=== PATIENT | male | born 1950 | race Caucasian/White ===

== ENCOUNTER 2023-03-23 06:44 | Day surgery (SDC) | payer MEDICARE ==
[2023-03-23] MEDS ORDERED: fentaNYL 100 MCG/2 ML SDV ONE (07:25)
[2023-03-23] MEDS ORDERED: Propofol 200 MG/20 ML SDV ONE (07:25)
[2023-03-23] MEDS ORDERED: Lactated Ringers 1,000 ML IV SCH (07:30)
== END 2023-03-23 08:05 | disposition home or self-care (01) ==
LOC: JP.SDS 06:44
PROVIDERS: ATTEND Student in an Organized Health Care Education/Training Program
DX: I48.92 Unspecified atrial flutter (principal); Z53.8 Procedure and treatment not carried out for other reasons
CPT/HCPCS: 93005; J2704; J3010

== ENCOUNTER 2023-03-23 08:51 | Emergency (ER) | payer MEDICARE ==
[2023-03-23 10:01] LABS: BASOPHILS ABSOLUTE AUTO 0.03 K/uL (0.00-0.10); BASOPHILS PERCENT AUTO 0.5 % (0.1-1.3); EOSINOPHILS ABSOLUTE AUTO 0.04 K/uL (0.00-0.40); EOSINOPHILS PERCENT AUTO 0.7 % (0.0-5.4); HEMATOCRIT 44.3 % (38.4-49.7); HEMOGLOBIN 14.8 g/dL (12.9-16.9); IMMATURE GRAN PERCENT AUTO 0.2 % (0.0-0.7); LYMPHOCYTES ABSOLUTE AUTO 1.39 K/uL (0.8-3.3); LYMPHOCYTES PERCENT AUTO 24.1 % (11.4-47.7); MEAN CORPUSCULAR HEMOGLOBIN 30.5 pg (31.6-35.5); MEAN CORPUSCULAR HGB CONC 33.4 g/dL (31.6-35.5); MEAN CORPUSCULAR VOLUME 91.3 fL (81.4-99.0); MONOCYTES ABSOLUTE AUTO 0.47 K/uL (0.20-0.90); MONOCYTES PERCENT AUTO 8.2 % (3.3-12.6); NEUTROPHILS ABSOLUTE AUTO 3.82 K/uL (1.0-7.6); NEUTROPHILS PERCENT AUTO 66.3 % (40.0-78.1); PLATELET COUNT,PLT 223 K/uL (130-375); RED BLOOD CELL COUNT 4.85 M/uL (4.14-5.76); WHITE BLOOD CELL COUNT,WBC 5.8 K/uL (3.2-11.0)
[2023-03-23 10:02] LABS: IMMATURE GRAN ABSOLUTE AUTO 0.01 K/uL (0.00-0.23)
[2023-03-23 10:29] LABS: A/G RATIO 1.3 (1.2-2.2); ALANINE AMINOTRANSFERASE,ALT 32 U/L (12-78); ALBUMIN 3.9 g/dL (3.4-5.0); ALKALINE PHOSPHATASE 77 U/L (46-116); ASPARTATE AMNIOTRANSFERASE,AST 27 U/L (15-37); BILIRUBIN TOTAL 0.7 mg/dL (0.2-1.0); BLOOD UREA NITROGEN,BUN 14 mg/dL (7-18); CARBON DIOXIDE,CO2 27 mmol/L (21-32); CHLORIDE,CL 103 mmol/L (100-108); ESTIMATED GFR 79 mL/min (>60); GLUCOSE RANDOM 91 mg/dL (74-106); POTASSIUM,K 4.6 mmol/L (3.6-5.2); PROTEIN TOTAL,TP 6.8 g/dL (6.4-8.2); SODIUM,NA 138 mmol/L (140-148); TROPONIN I HIGH SENSITIVITY 17.7 pg/mL (<=60.3)
[2023-03-23 10:32] LABS: ANION GAP 12.6 mmol/L (5.0-14.0)
== END 2023-03-23 11:10 | disposition home or self-care (01) ==
LOC: JP.ED 08:51
DX: I48.91 Unspecified atrial fibrillation (principal); I48.92 Unspecified atrial flutter; Z79.899 Other long term (current) drug therapy
CPT/HCPCS: 36415; 80053; 84443; 84484; 85025; 99284

== ENCOUNTER 2023-12-26 06:56 | Day surgery (SDC) | payer MEDICARE ==
[2023-12-26] MEDS ORDERED: Propofol 200 MG/20 ML SDV ONE (06:57)
[2023-12-26] MEDS ORDERED: fentaNYL 50 MCG/ML SDV ONE (06:57)
[2023-12-26] MEDS: Lactated Ringers 1,000 ML IV SCH (07:52)
== END 2023-12-26 10:05 | disposition home or self-care (01) ==
LOC: JP.SDS 06:56
PROVIDERS: ATTEND Family Medicine
DX: Z12.11 Encounter for screening for malignant neoplasm of colon (principal); E78.5 Hyperlipidemia, unspecified
CPT/HCPCS: G0121; J2704; J3010; J7120